=== PATIENT | female | born 1965 | race Caucasian/White ===

== ENCOUNTER 2017-10-28 06:45 | Inpatient (IN) | payer OTHER ==
[~2017-10-28] VITALS: Ht 162.6 cm; Wt 83.3 kg
[2017-10-28 07:32] LABS: BASOPHIL (%) 1.4 % (0-1); BASOPHIL COUNT 0.1 K/uL (0-0.1); EOSINOPHIL (%) 4.8 % (0-5); EOSINOPHIL COUNT 0.4 K/uL (0-0.3); HEMATOCRIT 39.6 % (36.0-46.0); HEMOGLOBIN 13.5 G/DL (11.9-15.5); IMMATURE GRANULOCYTE (%) 0.6 % (0.0-0.7); LYMPHOCYTE (%) 22.6 % (15-42); MCH 30.6 PG (29.0-34.0); MCHC 34.1 G/DL (30.0-36.0); MCV 89.8 FL (83-99); MONOCYTE (%) 7.1 % (3-12); MONOCYTE COUNT 0.6 K/uL (0-0.8); NEUTROPHIL (%) 63.5 % (45-76); NEUTROPHIL COUNT 5.6 K/uL (1.8-6.4); PLATELET COUNT 173 K/uL (156-360); RBC DIS.WIDTH-CV 12.8 % (11.8-14.6); RBC DIS.WIDTH-SD 41.8 % (39-53); RED BLOOD COUNT 4.41 M/uL (3.80-5.20); WHITE BLOOD COUNT 8.8 K/uL (4.1-10.2)
[2017-10-28 08:16] LABS: CHLORIDE 110 mEq/L (99-109); POTASSIUM 4.8 mEq/L (3.7-5.4); SODIUM 140 mEq/L (136-147)
[2017-10-28 08:18] LABS: GLUCOSE 158 mg/dL (70-99)
[2017-10-28 08:22] LABS: CREATININE 2.4 mg/dL (0.6-1.3); GFR ESTIMATE (CALCULATED) 22 mL/min/; UREA NITROGEN (BUN) 34 mg/dL (9-23)
[2017-10-28] MEDS ORDERED: VITAMIN D2000 UNI1 PO (09:23)
[2017-10-28] MEDS ORDERED: NORMODYNE,TRAN200 MG PO (09:24)
[2017-10-28] MEDS ORDERED: CALCITRIOL0.5 MCG PO (09:25)
[2017-10-28] MEDS ORDERED: CYMBALTA30 MG PO (09:26)
[2017-10-28] MEDS ORDERED: TRAMADOL HCL50 MG PO (09:26)
[2017-10-28] MEDS ORDERED: NIFEDIPINE ER30 MG PO (09:27)
[2017-10-28] MEDS ORDERED: LOPREEZA 0.5 M1 EACH PO (09:28)
[2017-10-28 13:22] VITALS: BP 136/87
== END 2017-10-28 13:24 | disposition left against medical advice (07) | DRG 305 ==
LOC: EDBD 06:45 → EME 06:45 → EDOF 08:42 → CANRESERV 08:44 → ENRESERV 08:44 → EDOF 08:58
PROVIDERS: Emergency Medicine
DX: I16.0 Hypertensive urgency (principal); N17.9 Acute kidney failure, unspecified; N18.9 Chronic kidney disease, unspecified; R11.10 Vomiting, unspecified; I12.9 Hypertensive chronic kidney disease with stage 1 through stage 4 chronic kidney disease, or unspecified chronic kidney disease; Q61.3 Polycystic kidney, unspecified; F17.200 Nicotine dependence, unspecified, uncomplicated; R42 Dizziness and giddiness
CPT/HCPCS: 70450; 80048; 85025; 85027; 85610; 85730; 93005; 99281; 99285; J0780; J1644; J2405; J7030